=== PATIENT | female | born 1985 | race Caucasian/White ===

== ENCOUNTER 2016-08-14 17:25 | Emergency (ER) | payer OTHER ==
[~2016-08-14] VITALS: Ht 170.2 cm; Wt 145.2 kg
--- NOTE | ~2016-08-14 | EKG ---
[address] [address] ELECTROCARDIOGRAM REPORT Name: SIM PRIEST Room #: [facility].R.#: [id number] Admission: Attend Phys: Discharge: Date of : 87 Report #: [id number] THIS REPORT FOR: //name// [facility] ED Test Date: 2016-08-14 Test Time: 17:33:50 Pat Name: SIM PRIEST Department: Room: Gender: [employer] Teacher: Robyn JOLLEY : 1985 Requested By: Reny Serrano Order Number: [id number] MD: Measurements Intervals [place] Rate: 91 P: 31 PA: 161 QRS: 23 QRSD: 83 T: 14 QT: 366 QTc: 451 Interpretive Statements Sinus rhythm No previous ECG available for comparison [email or web address] By: [id number] Epiphany MD Yumiko /EPI
[~2016-08-14 17:25] MED LIST: AZITHROMYCIN 2250 MG PO; FLONASE 0.05%50 MCG NASAL; NAPROSYN500 MG PO; PHENERGAN 25 MG25 M1 PO; PREDNISONE 20 M20 MG PO; VENTOLIN HFA 1818 GM
[2016-08-14 19:04] LABS: ABSOLUTE NEUTROPHILS 4.7 thou/uL (1.4-8.2); HEMATOCRIT 41.6 % (37.0-47.0); HEMOGLOBIN 13.8 gm/dL (12.0-15.0); LYMPHOCYTES 36.3 % (24.0-44.0); MCH 27.2 pg (26.0-34.0); MCHC 33.2 g/dL (28.0-37.0); MONOCYTES 10.1 % (1.0-8.0); PLATELET COUNT 307 thou/uL (150-400); POLYS 49.6 % (36.0-66.0); RBC 5.07 mil/uL (4.20-5.00); RDW 14.4 % (10.5-14.5); WBC 9.5 thou/uL (4.0-11.0)
[2016-08-14 19:05] LABS: MANUAL DIFF NO
[2016-08-14 19:12] LABS: ANION GAP 7 mmol/L (7-16); BUN 9 mg/dL (7-18); CALCIUM 8.6 mg/dL (8.5-10.1); CHLORIDE 108 mmol/L (98-107); CO2 27 mmol/L (21-32); CREATININE 0.9 mg/dL (0.6-1.3); GLUCOSE 99 mg/dL (70-99); POTASSIUM 3.7 mmol/L (3.5-5.1); SODIUM 142 mmol/L (136-145)
[2016-08-14 19:20] LABS: TROPONIN-I < 0.04 ng/mL (<0.04-0.07)
[2016-08-14] MEDS ORDERED: IBUPROFEN 800800 MG PO (19:20)
[2016-08-14 19:33] VITALS: BP 126/68
== END 2016-08-14 19:36 | disposition home or self-care (01) ==
LOC: ER 17:25
PROVIDERS: Emergency Medicine
DX: R07.89 Other chest pain (principal); M54.12 Radiculopathy, cervical region; R09.1 Pleurisy; J45.909 Unspecified asthma, uncomplicated; E66.9 Obesity, unspecified; F10.99 Alcohol use, unspecified with unspecified alcohol-induced disorder

== ENCOUNTER 2017-02-11 08:14 | Emergency (ER) | payer OTHER ==
[~2017-02-11] VITALS: Ht 170.2 cm; Wt 106.6 kg
[~2017-02-11 08:14] MED LIST changes: +IBUPROFEN 800800 MG PO
[2017-02-11] MEDS ORDERED: FLOVENT HFA 4444 MCG INH ×2 (08:20→10:09)
[2017-02-11] MEDS ORDERED: PROAIR RESPICL90 MCG INH (10:06)
[2017-02-11] MEDS ORDERED: DEXAMETHASONE 44 M1 PO (10:09)
[2017-02-11 10:20] VITALS: BP 123/69
== END 2017-02-11 10:22 | disposition home or self-care (01) ==
LOC: ER 08:14
DX: J45.901 Unspecified asthma with (acute) exacerbation (principal); J06.9 Acute upper respiratory infection, unspecified

== ENCOUNTER 2017-06-03 13:37 | Emergency (ER) | payer OTHER ==
[~2017-06-03] VITALS: Ht 170.2 cm; Wt 97.5 kg
[~2017-06-03 13:37] MED LIST changes: +DEXAMETHASONE 44 M1 PO; +FLOVENT HFA 4444 MCG INH; +PROAIR RESPICL90 MCG INH
== END 2017-06-03 16:22 | disposition home or self-care (01) ==
LOC: ER 13:37
DX: J06.9 Acute upper respiratory infection, unspecified (principal); E86.9 Volume depletion, unspecified

== ENCOUNTER 2017-10-02 15:01 | Emergency (ER) | payer OTHER ==
[~2017-10-02] VITALS: Ht 170.2 cm; Wt 140.6 kg
[2017-10-02] MEDS ORDERED: ACCUNEB SO1.25 MG/1 INH (15:19)
[2017-10-02] MEDS ORDERED: PREDNISONE 20 M20 MG PO (16:27)
[2017-10-02] MEDS ORDERED: VENTOLIN HFA 1818 GM INH (16:27)
[2017-10-02] MEDS ORDERED: ALBUTEROL2.5 MG/31 INH (16:27)
[2017-10-02 16:35] VITALS: BP 141/78
== END 2017-10-02 16:36 | disposition home or self-care (01) ==
LOC: ER 15:01
DX: J45.901 Unspecified asthma with (acute) exacerbation (principal)